=== PATIENT | female | born 1980 | race Caucasian/White ===

== ENCOUNTER 2017-10-22 09:48 | Inpatient (IN) | payer OTHER ==
[~2017-10-22 09:48] MED LIST: ATROPINE 1 MG/10 ML SYRINGE IV; BUPIVACAINE 0.25%/EPI (MDV) 50 ML VIAL INJ; CEFAZOLIN 1 GM INJ; DIPHENHYDRAMINE 50 MG INJ IV; EPHEDrine SULFATE 50 MG/5 ML SYG IV; FENTAnyl 50 MCG/ML VIAL IV; HYDROmorphONE (0.2 MG/ML) 10ML SYG IV; LABETALOL HCL 20MG INJ IV; MIDAZOLAM 1 MG/ML 2 ML INJ IV; OXYCODONE/ACETAMINOPHEN (5/325) TAB PO; SUCCINYLCHOLINE CHLORIDE 100 MG/5 ML SYG IV; hydrALAzine 20 MG INJ IV; morphine (1 MG/ML) 10ML SYRINGE IV
[2017-10-22] MEDS ORDERED: NEOSTIGMINE 3 MG/3 ML SYRINGE (10:49)
[2017-10-22] MEDS ORDERED: ROCURONIUM 50 MG INJ (10:49)
[2017-10-22] MEDS ORDERED: GLYCOPYRROLATE 0.4 MG INJ (10:49)
[2017-10-22] MEDS ORDERED: LIDOCAINE 2% (SDV) 5 ML INJ (10:49)
[2017-10-22] MEDS ORDERED: PROPOFOL 20 ML (10:49)
[2017-10-22] MEDS ORDERED: FENTAnyl 50 MCG/ML VIAL (10:50)
[2017-10-22] MEDS ORDERED: ONDANSETRON 4 MG INJ (10:50)
[2017-10-22] MEDS ORDERED: MIDAZOLAM 1 MG/ML 2 ML INJ (10:50)
[2017-10-22] MEDS ORDERED: DEXAMETHASONE 4 MG/ML 1 ML INJ (10:50)
[2017-10-22] MEDS ORDERED: HYDROmorphONE 0.5 MG/0.5 ML SYG IV (11:30)
[2017-10-22] MEDS ORDERED: NALOXONE (0.4 MG/ML) INJ IV (11:30)
[2017-10-22] MEDS ORDERED: CEPASTAT LOZENGE MT (11:30)
[2017-10-22] MEDS ORDERED: ACETAMINOPHEN 325 MG TAB PO (11:30)
[2017-10-22] MEDS ORDERED: BISACODYL 10 MG SUPP PR (11:30)
[2017-10-22] MEDS: CEFAZOLIN 1 GM/50 ML (PMX) 50 ML IVPB ×2 (11:30→18:33)
[2017-10-22] MEDS ORDERED: AL HYDROX/MG HYDROX/SIMETH 30 ML CUP PO (11:30)
[2017-10-22] MEDS ORDERED: DIPHENHYDRAMINE 50 MG INJ IV (11:30)
[2017-10-22] MEDS ORDERED: ONDANSETRON 4 MG INJ IV (11:30)
[2017-10-22] MEDS ORDERED: SURGIFOAM POWDER 1 GM KIT (11:39)
[2017-10-22] MEDS ORDERED: BUPIVACAINE 0.25% (MPF) 30 ML INJ (11:42)
[2017-10-22] MEDS: THROMBIN 5000 UNIT VIAL (12:43)
[2017-10-22] MEDS: BUPIVACAINE 0.25%/EPI (SDV) 30 ML INJ INJ (12:43)
[2017-10-22] MEDS: POLYMYXIN/BACITRACIN 1L IRRIG IRR (12:43)
[2017-10-22] MEDS: HEPARIN 1000 UNITS/ML 10 ML INJ (12:43)
[2017-10-22] MEDS: CA CHLORIDE 10% 10 ML SYRINGE ×2 (13:01→13:28)
[2017-10-22] MEDS ORDERED: LIDOCAINE 4% CR (13:21)
[2017-10-22] MEDS ORDERED: ALBUTEROL 0.083% (NEB) 2.5 MG/3 ML AMP (13:22)
[2017-10-22] MEDS ORDERED: POLYMYXIN/BACITRACIN 1L IRRIG (13:31)
[2017-10-22] MEDS: THROMBIN(HUM PLAS)/FIBRINOG/CA 5 ML VIAL TOP (14:30)
[2017-10-22] MEDS ORDERED: NALOXONE (0.4 MG/ML) INJ (15:13)
[2017-10-22] MEDS ORDERED: FLUMAZENIL 0.5 MG INJ (15:13)
[2017-10-22] MEDS ORDERED: MEPERIDINE 25 MG INJ (15:22)
[2017-10-22] MEDS: HYDROmorphONE 0.2 MG/ML PCA IV (15:43)
[2017-10-22] MEDS: ONDANSETRON 4 MG INJ IV (15:44)
[2017-10-22] MEDS: MEPERIDINE 25 MG INJ IV (15:44)
[2017-10-22] MEDS: FENTAnyl 50 MCG/ML VIAL IV ×2 (15:48→15:55)
[2017-10-22] MEDS: D5W-0.45 NACL + KCL 20 MEQ 1,000 ML IV ×2 (18:34→21:20)
[2017-10-22] MEDS: DOCUSATE SODIUM 100 MG CAP PO (20:25)
[2017-10-23] MEDS: HYDROmorphONE 0.2 MG/ML PCA IV (02:19)
[2017-10-23] MEDS: CEFAZOLIN 1 GM/50 ML (PMX) 50 ML IVPB (03:10)
[2017-10-23] MEDS: D5W-0.45 NACL + KCL 20 MEQ 1,000 ML IV (04:48)
[2017-10-23 05:51] LABS: ADD MAN DIFF? NO
[2017-10-23 06:00] LABS: WHITE BLOOD COUNT 15.6 10^3/ul (4.8-10.8)
[2017-10-23 06:00] LABS: BASOPHILS % 0.1 % (0.0-2.0); EOSINOPHILS % 0.1 % (0.0-7.0); HEMATOCRIT 33.9 % (37.0-47.0); HEMOGLOBIN 11.7 g/dl (12.0-16.0); LYMPHOCYTES # 1.2 10^3/ul (0.8-2.9); LYMPHOCYTES % 7.5 % (15.0-51.0); MEAN CORPUSCULAR HEMOGLOBIN 31.6 pg (29.0-33.0); MEAN CORPUSCULAR HGB CONC 34.5 g/dl (32.0-37.0); MEAN CORPUSCULAR VOLUME 91.6 fl (82.0-101.0); MEAN PLATELET VOLUME 10.2 fl (7.4-10.4); MONOCYTE # 0.7 10^3/ul (0.3-0.9); MONOCYTES % 4.6 % (0.0-11.0); NEUTROPHIL # 13.6 10^3/ul (1.6-7.5); NEUTROPHILS % 87.3 % (39.0-77.0); PLATELET COUNT 247 10^3/UL (140-415); RED CELL DISTRIBUTION WIDTH 13.2 % (11.5-14.5)
[2017-10-23 07:00] LABS: ANION GAP 12 (8-16); BLOOD UREA NITROGEN 9 mg/dl (7-20); CALCIUM 8.6 mg/dl (8.4-10.2); CARBON DIOXIDE 22 mmol/L (21-31); CHLORIDE 105 mmol/L (97-110); CREATININE 0.65 mg/dl (0.44-1.00); GLUCOSE 151 mg/dl (70-220); MAGNESIUM 1.7 mg/dl (1.7-2.5); POTASSIUM 4.2 mmol/L (3.5-5.1); SODIUM 135 mmol/L (135-144)
[2017-10-23] MEDS: DOCUSATE SODIUM 100 MG CAP PO (08:46)
[2017-10-23] MEDS: HYDROCODONE/APAP (10/325) TAB PO ×3 (08:47→18:56)
[2017-10-23] MEDS ORDERED: HYDROCODONE/APAP (10/325) TAB PO (09:30)
[2017-10-23] MEDS: CYCLOBENZAPRINE 10 MG TAB PO (10:13)
== END 2017-10-23 19:30 | disposition home or self-care (01) | DRG 520 ==
LOC: REC 09:48 → MS1 16:30
PROC: 0SB20ZZ Excision of Lumbar Vertebral Disc, Open Approach (ICD-10-PCS; principal; 2017-10-22 12:00)
DX: M51.16 Intervertebral disc disorders with radiculopathy, lumbar region (principal)
CPT/HCPCS: 72020; 80048; 83735; 85025; 86999; 97116; 97163